=== PATIENT | female | born 1995 | race Caucasian/White ===

== ENCOUNTER → 2019-06-01 | Outpatient (CLI) | payer BC ==
--- NOTE | 2019-06-01 16:12 | US ---
EXAMINATION TYPE: US pelvis complete transvag DATE OF EXAM: 06/01/2019 COMPARISON: NONE CLINICAL HISTORY: R10.2 PELVIC PAIN. pelvic pain, heavy cycles with cramping even on control, p ossible endometriosis TECHNIQUE: TA/TV. Transabdominal sonographic images of the pelvis were acquired. Transvaginal sono graphic images Date of LMP: 05/18/2019 EXAM MEASUREMENTS: Uterus: 8.4 x 3.9 x 4.5 cm Endometrial Stripe: 0.7 cm Right Ovary: 3.4 x 2.0 x 1.8 cm Left Ovary: 2.6 x 1.8 x 2.0 cm 1. Uterus: retroflexed flex within mid portion of body casts a shadowing 2. Endometrium: wnl, on appearance XIMENA endometrium looks thicker than fundal but with TV measurement s they are both 0.8cm 3. Right Ovary: wnl 4. Left Ovary: wnl 5. Bilateral Adnexa: wnl 6. Posterior cul-de-sac: wnl IMPRESSION: 1. Lower uterine segment endometrium appears somewhat prominent on visual inspection. Abnormality is not otherwise evident in the pelvic ultrasound.
== END | disposition home or self-care (01) ==
LOC: RADUSWWP 08:23
PROVIDERS: ATTEND Internal Medicine
DX: R10.2 Pelvic and perineal pain (principal)
CPT/HCPCS: 76830; 76856

== ENCOUNTER → 2019-09-10 | Outpatient (CLI) | payer BC ==
--- NOTE | 2019-09-10 16:11 | XR ---
EXAMINATION TYPE: XR lumbosacral spine min 4V DATE OF EXAM: 09/10/2019 COMPARISON: NONE HISTORY: 24-year-old female low-back pain TECHNIQUE: 5 views FINDINGS: No pars interarticularis defect. Vertebral body heights and disc interspaces are preserved and alignm ent is maintained. IMPRESSION: No vertebral compression or malalignment.
== END | disposition home or self-care (01) ==
LOC: RADXRYALE 13:18
PROVIDERS: ATTEND Internal Medicine
DX: M54.5 Low back pain (principal)
CPT/HCPCS: 72110